=== PATIENT | female | born 1940 | race Caucasian/White ===

== ENCOUNTER 2018-02-19 18:18 | Observation (INO) | payer OTHER ==
[~2018-02-19] VITALS: Ht 162.6 cm; Wt 88.5 kg
[2018-02-19 19:26] LABS: Urine Bacteria MANY /hpf (None Seen); Urine Blood Negative /uL (Negative); Urine Specific Gravity 1.013 (1.001-1.035); Urine WBC 24 /hpf (0 - 5)
[2018-02-19 19:31] LABS: Hematocrit 18.9 % (36.0-46.0); Mean Corpuscular Hemoglobin 28.1 pg (28.0-32.0); Mean Corpuscular Hgb Conc. 32.6 g/dL (32.0-36.0); Mean Corpuscular Volume 86.4 fL (80.0-100.0); Platelet Count (auto) 154 10^3/uL (140-450); Red Blood Cells 2.18 10^6/uL (4.0-5.20); Red Cell Distribution Width 20.2 % (11.8-14.3); White Blood Cell 4.4 10^3/uL (4.4-10.8)
[2018-02-19 19:33] LABS: Hemoglobin 6.1 g/dL (12.2-16.2)
[2018-02-19 19:36] LABS: Band Neutrophils % (manual) 0; Basophils % (manual) 0 (0.0-2.0); Blast Cells 0; Eosinophils % (manual) 0 (0-7); Metamyelocytes % 0; Myelocytes % 0; Promyelocytes % 0; Reactive Lymphocytes 0
[2018-02-19 19:48] LABS: Albumin 3.8 g/dL (3.4-5.0); Anion Gap 12 (5-15); BUN/Creatinine Ratio 29.3; Blood Urea Nitrogen 58 mg/dL (7-18); Calcium 8.7 mg/dL (8.5-10.1); Carbon Dioxide 21 mmol/L (21-32); Chloride 107 mmol/L (98-107); GFR African American 31 mL/min; GFR Non-African American 26 mL/min; Glucose 184 mg/dL (74-106); Potassium 4.6 mmol/L (3.5-5.1); Sodium 140 mmol/L (136-145)
[2018-02-19 20:03] LABS: Alanine Aminotransferase 24 U/L (13-56); Alkaline Phosphatase 70 U/L (45-117); Aspartate Aminotransferase 25 U/L (15-37); Bilirubin, Total 1.2 mg/dL (0.2-1.0); Total Protein 7.3 g/dL (6.4-8.2)
[2018-02-19 20:04] LABS: Lymphocytes % (manual) 5 (10.0-50.0); Monocytes % (manual) 1 (0-12)
[2018-02-19 23:34] LABS: INR 1.02 (0.9-1.15); Partial Thromboplastin Time 21.9 sec (23.78-33.04); Prothrombin Time 10.9 sec (9.27-12.13)
[2018-02-19 23:35] VITALS: BP 123/48
[2018-02-19 23:50] VITALS: BP 119/53
[2018-02-20] VITALS (8 sets, daily range): BP systolic 117–134; BP diastolic 46–86
== END 2018-02-20 04:20 | disposition home or self-care (01) | DRG 948 ==
LOC: ER 18:18 → OVERFLOW 18:19 → ER 02-20 04:20
PROVIDERS: ADMIT Emergency Medicine; ATTEND Emergency Medicine
DX: R53.1 Weakness (principal); C95.90 Leukemia, unspecified not having achieved remission; E86.0 Dehydration; Z87.440 Personal history of urinary (tract) infections; Z90.710 Acquired absence of both cervix and uterus
CPT/HCPCS: 36415; 74176; 80053; 81001; 84484; 85007; 85027; 85610; 85730; 86850; 86900; 86901; 86920; 93005; 99285; G0378; J7050; P9016; 36430

== ENCOUNTER 2018-10-13 05:05 | Inpatient (IN) | payer OTHER ==
[2018-10-13] VITALS (11 sets, daily range): BP systolic 76–102; BP diastolic 47–61
[~2018-10-13] VITALS: Ht 162.6 cm; Wt 79.8 kg
[2018-10-13 06:27] LABS: Basophils # (auto) 0 uL; Basophils % (auto) 0.2 % (0.0-2.0); Eosinophils # (auto) 0 uL; Eosinophils % (auto) 0.1 % (0.0-7.0); Hematocrit 16.9 % (36.0-46.0); Lymphocytes # (auto) 0.3 uL; Lymphocytes % (auto) 4.6 % (10.0-50.0); Mean Corpuscular Hemoglobin 28.2 pg (28.0-32.0); Mean Corpuscular Hgb Conc. 31.1 g/dL (32.0-36.0); Mean Corpuscular Volume 90.5 fL (80.0-100.0); Monocytes # (auto) 0 uL; Monocytes % (auto) 0.5 % (0.0-12.0); Neutrophils # (auto) 5.9 uL; Neutrophils % (auto) 94.6 % (37.0-80.0); Nucleated Red Blood Cells % 0.1 %; Platelet Count (auto) 142 10^3/uL (140-450); Red Blood Cells 1.86 10^6/uL (4.0-5.20); Red Cell Distribution Width 19.8 % (11.8-14.3); White Blood Cell 6.2 10^3/uL (4.4-10.8)
[2018-10-13 06:29] LABS: Hemoglobin 5.3 g/dL (12.2-16.2)
[2018-10-13 06:31] LABS: Albumin 3.5 g/dL (3.4-5.0); BUN/Creatinine Ratio 24.3; Calcium 9.6 mg/dL (8.5-10.1); Magnesium 2.4 mg/dL (1.6-2.6); Potassium 4.7 mmol/L (3.5-5.1)
[2018-10-13] MEDS ORDERED: SODIUM CHLORIDE 0.9% 1,000 ML IV ONE (06:34)
[2018-10-13] MEDS ORDERED: SODIUM CHLORIDE 0.9% 500 ML IVB ONE (06:34)
[2018-10-13 06:36] LABS: Total Protein 7.2 g/dL (6.4-8.2)
[2018-10-13 06:55] LABS: Urine Bacteria NONE SEEN /hpf (None Seen); Urine Blood Negative /uL (Negative); Urine Specific Gravity 1.015 (1.001-1.035); Urine WBC 2 /hpf (0 - 5)
[2018-10-13 07:06] LABS: INR 1.07 (0.9-1.15); Partial Thromboplastin Time 22.2 sec (23.78-33.04); Prothrombin Time 11.4 sec (9.27-12.13)
[2018-10-13] MEDS: PROMETHAZINE HCL 25 MG/ML 1ML IV PRN ×2 (07:44→18:16)
[2018-10-13] MEDS ORDERED: SODIUM CHLORIDE 0.9% 500 ML IV ONE (14:00)
[2018-10-13 14:36] LABS: Hematocrit 20.6 % (36.0-46.0)
[2018-10-13] MEDS ORDERED: DOPamine 1600MCG/ML D5W 250 ML IV SCH (15:49)
[2018-10-13] MEDS ORDERED: ACETAMINOPHEN 500 MG TAB PO PRN (16:30)
[2018-10-13] MEDS ORDERED: MORPHINE SULF INJ 2 MG/ML SYRINGE 1ML IV PRN ×2 (16:30)
[2018-10-13] MEDS ORDERED: NITROGLYCERIN 0.4 MG SL TAB SL PRN (16:30)
[2018-10-13] MEDS ORDERED: ONDANSETRON HCL 4 MG/2 ML VIAL IV PRN (16:30)
[2018-10-13] MEDS ORDERED: methylPREDNISolone SOD SUCC 125 MG/2 ML VL IV ONE (16:30)
[2018-10-13 16:36] LABS: Lactic Acid w/Reflex 2.1 mmol/L (0.4-2.0)
[2018-10-13] MEDS: HYDROcodone-ACET 5/325MG TAB PO PRN (17:00)
[2018-10-13] MEDS ORDERED: NOREPINEPHRINE 8 MG/250ML KIT 250 ML IV SCH (17:35)
[2018-10-14 06:02] LABS: Hematocrit 27.8 % (36.0-46.0); Hemoglobin 9.5 g/dL (12.2-16.2); Mean Corpuscular Hgb Conc. 34.2 g/dL (32.0-36.0); Mean Corpuscular Volume 84.7 fL (80.0-100.0); Platelet Count (auto) 165 10^3/uL (140-450); Red Blood Cells 3.28 10^6/uL (4.0-5.20); Red Cell Distribution Width 17.7 % (11.8-14.3); White Blood Cell 7.7 10^3/uL (4.4-10.8)
[2018-10-14 06:27] LABS: Band Neutrophils % (manual) 0; Basophils % (manual) 0 (0.0-2.0); Blast Cells 0; Eosinophils % (manual) 0 (0-7); Metamyelocytes % 0; Myelocytes % 0; Promyelocytes % 0
[2018-10-14 06:31] LABS: Albumin 3.1 g/dL (3.4-5.0); Calcium 9.3 mg/dL (8.5-10.1); Potassium 4.3 mmol/L (3.5-5.1)
[2018-10-14 06:38] LABS: BUN/Creatinine Ratio 27.2; Bilirubin, Total 1.6 mg/dL (0.2-1.0); Total Protein 6.7 g/dL (6.4-8.2)
[2018-10-14 07:55] LABS: Lymphocytes % (manual) 11 (10.0-50.0); Monocytes % (manual) 10 (0-12); Reactive Lymphocytes 3
--- NOTE | 2018-10-14 09:10 | NUR ---
CLINICALS FAXED TO [facility].
[2018-10-14] MEDS: HYDROcodone-ACET 5/325MG TAB PO PRN (09:18)
[2018-10-14 11:13] LABS: % Iron Saturation 8.5 % (15-50)
[2018-10-14] MEDS ORDERED: PANTOPRAZOLE 40 MG TAB PO ONE (12:45)
[2018-10-14] MEDS ORDERED: SODIUM FERR GLUC 62.5MG/5ML 125 MG in SODIUM CHL 0.9% 100 ML IV SCH (13:00)
[2018-10-14] MEDS ORDERED: SODIUM CHLORIDE 0.9% 1,000 ML IV SCH (13:45)
[2018-10-14 14:15] LABS: Creatinine, Urine 121 mg/dL (30.0-125.0); Sodium Urine 37 mmol/L (40-220)
--- NOTE | 2018-10-14 14:40 | NUR ---
Telemetry admit from ER WALTER SNEED admitted to Telemetry unit after SBAR received. Patient oriented to Dunia Nichols RN primary RN, unit, room, bed, and unit policies regarding patient care and visiting hours. Patient now on continuous telemetry monitoring, tele box # [id number] and telemetry reading on arrival to unit is SR 87. Patient placed on bedside oxygen, weighed by bedscale and encouraged to call if they need something. All questions and concerns addressed, patient verbalized understanding.
--- NOTE | 2018-10-14 14:45 | NUR ---
KIDNEY US US TECH AT BEDSIDE FOR IMAGING.
--- NOTE | 2018-10-14 14:48 | NUR ---
CLINICALS AND ORDER TO TRANSFER FAXED TO [facility]. CM AT [facility] IS [facility] [phone]
--- NOTE | 2018-10-14 14:56 | NUR ---
AT BEDSIDE DR. CARSON AT BEDSIDE.
--- NOTE | 2018-10-14 15:20 | NUR ---
REPORT RECEIVED PHONE CALL FROM [facility]. REQUESTING MOST RECENT VITALS AND LABS. REPORT PROVIDED. STATING THEY WILL SEND FAX TO CASE MANAGEMENT. ATTEMPTED TO TRANSFER PHONE CALL, BUT CALL GOT DISCONNECTED.
[2018-10-14] MEDS ORDERED: FOLI1TAB6 PO (15:36)
[2018-10-14] MEDS ORDERED: SIMV-13 PO (15:36)
[2018-10-14] MEDS ORDERED: LEVO125T7 PO (15:36)
[2018-10-14] MEDS ORDERED: MET50T PO (15:36)
[2018-10-14] MEDS ORDERED: TRAZ50TA2 PO (15:36)
[2018-10-14] MEDS ORDERED: HYDR200T36 PO (15:36)
[2018-10-14] MEDS ORDERED: TRIA75TA55 PO (15:36)
--- NOTE | 2018-10-14 15:38 | NUR ---
WOUND PHOTOGRAPH PRESSURE AREA AND BLANCHABLE REDNESS NOTED TO PATIENTS RIGHT BUTTOCK. PHOTOGRAPH TAKEN FOR REFERENCE. AREA COVERED WITH Z-GUARD AND OPTIFOAM DRESSING. FORM PLACED IN WOUND CARE BOX. WOUND CONSULT PLACED. CARE PLAN INITIATED.
[2018-10-14 16:34] VITALS: BP 91/61
--- NOTE | 2018-10-14 16:59 | NUR ---
IV removal IV DC'd with clean sterile technique, catheter fully intact. Pressure dressing applied to site. Patient tolerated well. NOTE: Patient c/o discomfort at RW IV site. Site swollen, no redness/phlebitis/warmth noted to site. Will continue to monitor.
[2018-10-14 17:00] VITALS: BP 110/59
--- NOTE | 2018-10-14 17:57 | NUR ---
REPORT GIVEN RECEIVED PHONE CALL FROM [facility], STATING PATIENT TO BE TRANSFERED TO [facility] ROOM 328. REPORT GIVEN TO RNCHRYSTAL AT [facility]. PHONE NUMBER FOR REPORT: [phone]. CALLED PATIENTS , [facility], TO INFORM OF TRANSFER. AWARE.
--- NOTE | 2018-10-14 19:00 | NUR ---
OPENING NOTE Received report from day shift RN. Patient is A&O X's 4 with no s/s of distress noted. Patient's is at bedside. Educated them on POC and ETA for transfer to acute facility. All questions were answered at this time. They confirmed that they received discharge packet. Patient has a 20G IV to left wrist and crowder catheter that she will be transferring with. Bed is in lowest/locked position with side rails up X's 2 and call light is within reach.
--- NOTE | 2018-10-14 19:10 | NUR ---
PT CARE ENDORSED PT CARE ENDORSED TO SARAH SIMS. INFORMED OF PENDING TRANSFER TO [facility] AND ESTIMATED PICKUP TIME OF 1930. DC INSTRUCTIONS PREVIOUSLY GIVEN TO PATIENT AND [facility] AT BEDSIDE. AGREEABLE WITH TRANSFER. VERBALIZED UNDERSTANDING WITH POC AND FOLLOW UP CARE. [facility] PACKET ALONG WITH TRANSFER/IMAGING DISC GIVEN TO SARAH SIMS.
--- NOTE | 2018-10-14 19:44 | NUR ---
PATIENT TRANSFERRED TO ACUTE FACILITY Patient left by ambulance to be transferred. NO s/s of distress noted. Transfer packet was given to [facility]. Patient was safely transferred from bed to stretcher. Tele monitor is off patient.Patient left with 20 G IV to left wrist and crowder catheter in place. Report was given
[2018-10-15] MEDS ORDERED: PANTOPRAZOLE 40 MG TAB PO SCH (10:00)
== END 2018-10-14 19:44 | disposition short-term general hospital (02) | DRG 812 ==
LOC: ER 05:05 → EDBD 05:05 → TELE 16:41 → TELE-WESTW 10-14 15:01
PROVIDERS: ADMIT Nurse Practitioner Acute Care; ATTEND Family Medicine
PROC: 30233N1 Transfusion of Nonautologous Red Blood Cells into Peripheral Vein, Percutaneous Approach (ICD-10-PCS; principal; 2018-10-13)
DX: D50.9 Iron deficiency anemia, unspecified (principal); N17.9 Acute kidney failure, unspecified; Z68.41 Body mass index [BMI] 40.0-44.9, adult; N18.4 Chronic kidney disease, stage 4 (severe); E66.01 Morbid (severe) obesity due to excess calories; D63.1 Anemia in chronic kidney disease; E86.1 Hypovolemia; E11.22 Type 2 diabetes mellitus with diabetic chronic kidney disease; M06.9 Rheumatoid arthritis, unspecified; K57.30 Diverticulosis of large intestine without perforation or abscess without bleeding; I12.9 Hypertensive chronic kidney disease with stage 1 through stage 4 chronic kidney disease, or unspecified chronic kidney disease; R29.6 Repeated falls; I95.9 Hypotension, unspecified; K80.20 Calculus of gallbladder without cholecystitis without obstruction; Z91.81 History of falling
CPT/HCPCS: 36415; 36430; 51702; 71045; 71250; 74176; 76705; 76775; 80053; 80061; 81001; 82570; 83010; 83036; 83540; 83550; 83605; 83615; 83690; 83735; 84300; 84443; 84484; 85007; 85014; 85018; 85025; 85027; 85610; 85730; 86850; 86900; 86901; 86920; 93005; 94761; 96360; 96361; 99291; G0378